=== PATIENT | female | born 2005 | race Two or more races ===

== ENCOUNTER 2024-08-07 14:45 | Outpatient (CLI) | payer OTHER | END 2024-08-07 14:46 | disposition home or self-care (01) | LOC: PRENATAL 14:45 | PROVIDERS: ATTEND Obstetrics & Gynecology Maternal & Fetal Medicine | DX: O36.80X0 Pregnancy with inconclusive fetal viability, not applicable or unspecified (principal); Z36.82 Encounter for antenatal screening for nuchal translucency; Z14.8 Genetic carrier of other disease; Z3A.13 13 weeks gestation of pregnancy ==

== ENCOUNTER 2024-09-20 01:26 | Emergency (ER) | payer OTHER ==
[~2024-09-20] VITALS: Ht 165.1 cm; Wt 71.2 kg
[2024-09-20 02:07] VITALS: BP 99/65; O2SAT 98
[2024-09-20 03:58] LABS: BASO % 0.2 % (0.1-1.2); EOS # 0.16 (0.04-0.54); EOS % 1.3 % (0.7-7.0); LYMPH # 3.65 (1.18-3.74); LYMPH % 28.8 % (19.3-53.1); MEAN PLATELET VOLUME 10.70 fl (9.4-12.4); MONO # 0.93 (0.24-0.82); MONO % 7.3 % (4.7-12.5); NEUT # 7.84 (1.56-6.13); NEUT % 61.9 % (34.0-71.1); RED CELL DISTRIBUTION WIDTH 14.5 % (11.6-14.4)
[2024-09-20 04:08] LABS: INR 1.0
[2024-09-20] MEDS ORDERED: FLONASE16 GM NASAL (04:55)
== END 2024-09-20 05:03 ==
LOC: ER 01:54
PROVIDERS: General Practice
DX: Z34.90 Encounter for supervision of normal pregnancy, unspecified, unspecified trimester (principal); Z3A.20 20 weeks gestation of pregnancy; R04.0 Epistaxis; J33.9 Nasal polyp, unspecified

== ENCOUNTER 2024-09-21 12:34 | Outpatient (CLI) | payer OTHER ==
[~2024-09-21 12:34] MED LIST: FLONASE16 GM NASAL
== END 2024-09-21 12:36 | disposition home or self-care (01) ==
LOC: PRENATAL 12:34
PROVIDERS: ATTEND Obstetrics & Gynecology Maternal & Fetal Medicine
DX: O44.00 Complete placenta previa NOS or without hemorrhage, unspecified trimester (principal); Z3A.20 20 weeks gestation of pregnancy

== ENCOUNTER 2024-12-14 13:37 | Outpatient (CLI) | payer OTHER | END 2024-12-14 13:38 | disposition home or self-care (01) | LOC: PRENATAL 13:37 | PROVIDERS: ATTEND Obstetrics & Gynecology Maternal & Fetal Medicine | DX: O26.843 Uterine size-date discrepancy, third trimester (principal); O36.8130 Decreased fetal movements, third trimester, not applicable or unspecified; Z3A.31 31 weeks gestation of pregnancy ==